=== PATIENT | male | born 1980 | race African-American/Black ===

== ENCOUNTER 2018-05-28 13:15 | Emergency (ER) | payer BC, OTHER ==
[2018-05-28 14:02] VITALS: BP 121/77; PULSE 68; RESP 18; TEMP 97.6
[2018-05-28] MEDS ORDERED: LIDOCAINE 1% INJ 10MG/ML (20 ML MDV) SQ STA (14:43)
--- NOTE | 2018-05-28 14:45 | ED ---
General Adult HPI - General Chief complaint: Skin/Abscess/Foreign Body Stated complaint: Metal in R Index Finger Time Seen by Provider: 05/28/18 14:10 Source: patient, RN notes reviewed Mode of arrival: ambulatory Limitations: no limitations - History of Present Illness Initial comments: Patient 38-year-old male presenting to the emergency room today with a chief complaint of foreign body to the right index finger. He does admit that he was working with some weights when taking [id number] is a piece fell off and lodged into his right index finger. Patient states was unable to remove it. Patient states his tetanus is up-to-date. Denies any other complaints or symptoms. Patient denies any recent fever, chills, shortness of breath, chest pain, back pain, abdominal pain, nausea or vomiting, numbness or tingling, dysuria or hematuria, or any other complaints. - Related Data Home Medications Medication Instructions Recorded Confirmed No Known Home Medications 12/11/15 11/08/17 Allergies Allergy/AdvReac Type Severity Reaction Status Date / Time No Known Allergies Allergy Verified 11/08/17 21:25 Review of Systems ROS Statement: Those systems with pertinent positive or pertinent negative responses have been documented in the HPI. ROS Other: All systems not noted in ROS Statement are negative. Past Medical History Past Medical History: No Reported History Additional Past Medical History / Comment(s): Right inguinal hernia History of Any Multi-Drug Resistant Organisms: None Reported Past Surgical History: No Surgical Hx Reported Past Psychological History: No Psychological Hx Reported Smoking Status: Former smoker Past Alcohol Use History: Occasional Past Drug Use History: None Reported General Exam - General Exam Comments Initial Comments: General: The patient is awake and alert, in no distress, and does not appear acutely ill. Neck: The neck is supple, there is no tenderness or JVD. Musculoskeletal: Patient shows full range motion. Sensation intact. Pulses equal bilaterally 2+. Strength 5/5. Neurological: A&O x 3. CN II-XII intact, There are no obvious motor or sensory deficits. Coordination appears grossly intact. Speech is normal. Skin: Skin is warm and dry and no rashes or lesions are noted. Psychiatric: Normal mood and affect. Limitations: no limitations Course Vital Signs 05/28/18 13:58 Temperature 97.6 F Pulse Rate 68 Respiratory 18 Rate Blood Pressure 121/77 O2 Sat by Pulse 98 Oximetry Procedures - Procedures Initial comment: Patient's right index finger anesthetized at the head of the metacarpals with 1 % lidocaine. An 18-gauge needle was used to remove foreign body. Patient tolerated procedure well. Medical Decision Making - Medical Decision Making Patient's initial x-ray did show small metallic foreign body to the right index finger. Patient's index finger was anesthetized locally. Foreign body removed. Repeat x-ray showed no foreign body. Patient discharged home. His tetanus is up-to-date. Disposition Clinical Impression: Foreign body finger Disposition: HOME SELF-CARE Condition: Good Instructions: Soft Tissue Foreign Body (ED) Additional Instructions: Please watch for any signs of infection. Please return to emergency room if the symptoms increase or worsen or for any other concerns. Is patient prescribed a controlled substance at d/c from ED?: No Referrals: Jose Shanks MD [Primary Care Provider] - 1-2 days Time of Disposition: 15:28
--- NOTE | 2018-05-28 15:04 | XR ---
Second digit right hand HISTORY: Foreign body. 3 views of the second digit right hand. Small metallic fragment is present in the soft tissues lateral and volar aspect of the level of the d istal phalanx of the second digit of the right hand. Fragment measures approximately 1 to 2 mm. No fr acture or dislocation. IMPRESSION: Foreign body
--- NOTE | 2018-05-28 15:48 | XR ---
Right second digit of hand HISTORY: Foreign body removal 3 views of the second digit of the right hand correlated to prior exam on same date earlier time. There is been interval removal of the patient's foreign body. No other significant interval change. IMPRESSION: Foreign body removal.
== END 2018-05-28 15:52 | disposition home or self-care (01) ==
LOC: EC 13:15
DX: S60.450A Superficial foreign body of right index finger, initial encounter (principal); Z87.891 Personal history of nicotine dependence
CPT/HCPCS: 73140; 99283; 10120; J2001

== ENCOUNTER 2018-09-16 14:27 | Emergency (ER) | payer OTHER ==
[2018-09-16 14:32] VITALS: RESP 18
[2018-09-16 15:01] LABS: Appearance,Urine Clear (Clear); Bilirubin,Urine Negative (Negative); Blood,Urine Negative (Negative); Color,Urine Yellow; Glucose,Urine (UA) Negative (Negative); Hyaline Casts,Urine 3 /lpf (0-2); Ketones,Urine Negative (Negative); Leukocyte Esterase,Urine Moderate (Negative); Mucus,Urine Rare /hpf; Nitrite,Urine Negative (Negative); Protein,Urine Trace (Negative); RBC,Urine 3 /hpf (0-5); Specific Gravity,Urine 1.022 (1.001-1.035); Squamous Epithelial Cell,Urine <1 /hpf (0-4); WBC,Urine 54 /hpf (0-5)
[2018-09-16] MEDS ORDERED: cefTRIAXone 250 MG VIAL IM STA (15:15)
[2018-09-16] MEDS ORDERED: AZITHROMYCIN 500 MG TAB PO STA (15:16)
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
[2018-09-16 16:11] VITALS: BP 141/86; PULSE 68; TEMP 97
[2018-09-17 12:08] LABS: C. trachomatis,PCR Positive (Neg,Equiv); Chlamydia trachomatis Source Urine
[2018-09-17 12:13] LABS: N. gonorrhoeae,PCR Negative (Neg,Equiv); Neisseria Source Urine
== END 2018-09-16 16:09 | disposition home or self-care (01) ==
LOC: EC 14:27
DX: R36.9 Urethral discharge, unspecified (principal); R82.998 Other abnormal findings in urine; N39.0 Urinary tract infection, site not specified; F17.200 Nicotine dependence, unspecified, uncomplicated
CPT/HCPCS: 81001; 87491; 87591; 87086; 99283; 96372; J0696

== ENCOUNTER 2018-10-07 08:37 | Emergency (ER) | payer OTHER ==
[2018-10-07 08:42] VITALS: BP 138/87; PULSE 77; RESP 18; TEMP 98.4
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
== END 2018-10-07 10:19 | disposition home or self-care (01) ==
LOC: EC 08:37
DX: S00.12XA Contusion of left eyelid and periocular area, initial encounter (principal); S00.83XA Contusion of other part of head, initial encounter; M54.2 Cervicalgia; F17.200 Nicotine dependence, unspecified, uncomplicated; Y04.0XXA Assault by unarmed brawl or fight, initial encounter
CPT/HCPCS: 70450; 70486; 72125; 99284

== ENCOUNTER 2018-10-15 12:50 | Emergency (ER) | payer OTHER ==
[2018-10-15 12:58] VITALS: BP 135/82; PULSE 80; RESP 20; TEMP 98.3
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
[2018-10-15] MEDS ORDERED: IBUPROFEN 800 MG TAB PO STA (13:17)
[2018-10-15] MEDS ORDERED: PENICILLIN VK 500MG STARTER 4 TAB BTL PO STA (13:17)
== END 2018-10-15 13:30 | disposition home or self-care (01) ==
LOC: EC 12:50
DX: K04.7 Periapical abscess without sinus (principal); F17.200 Nicotine dependence, unspecified, uncomplicated
CPT/HCPCS: 99283

== ENCOUNTER → 2020-07-23 | Outpatient (CLI) | payer OTHER ==
[2020-07-23 08:58] LABS: HCT 48.3 % (39.0-53.0); HGB 15.5 gm/dL (13.0-17.5); MCH 31.4 pg (25.0-35.0); MCHC 32.2 g/dL (31.0-37.0); MCV 97.7 fL (80.0-100.0); Mean Platelet Volume 8.6; Platelet Count 121 k/uL (150-450); RBC 4.95 m/uL (4.30-5.90); RDW 12.6 % (11.5-15.5); WBC 3.7 k/uL (3.8-10.6)
[2020-07-23 18:29] LABS: HIV 2 AB Non-Reactive (Non-Reactive); HIV AB P24 Non-Reactive (Non-Reactive); HIV P24 AG Non-Reactive (Non-Reactive)
[2020-07-23 18:32] LABS: African American GFR (CKD) 108.6 (60.0-200.0); Albumin 4.8 g/dL (3.80-4.90); Albumin/Globulin Ratio 1.85 (1.60-3.17); Anion Gap 13.8 mmol/L (4.00-12.00); Calcium 9.6 mg/dL (8.7-10.3); Carbon Dioxide 25.2 mmol/L (21.6-31.8); Globulin 2.6 g/dL (1.6-3.3); Non-African American GFR(CKD) 93.7 (60.0-200.0); Potassium 3.7 mmol/L (3.5-5.5); Total Bilirubin 1.1 mg/dL (0.2-1.2); Total Protein 7.4 g/dL (6.2-8.2)
[2020-07-23 19:46] LABS: Hepatitis C IgG Antibody Non-Reactive (Non-Reactive)
== END | disposition home or self-care (01) ==
LOC: LABWHC1 08:07
PROVIDERS: ATTEND Nurse Practitioner Adult Health
DX: E53.8 Deficiency of other specified B group vitamins (principal); F19.10 Other psychoactive substance abuse, uncomplicated
CPT/HCPCS: 36415; 80053; 82306; 82607; 83090; 84443; 85027; 86803; 87390